=== PATIENT | female | born 1985 | race Caucasian/White ===

== ENCOUNTER → 2022-07-26 13:02 | Outpatient (CLI) | payer OTHER, SELFPAY | PROVIDERS: Referring Provider Internal Medicine; Visit Provider Internal Medicine | DX: Z23 Encounter for immunization (principal) | CPT/HCPCS: 90471; 90686 ==

== ENCOUNTER → 2023-07-14 10:48 | Outpatient (CLI) | payer OTHER, SELFPAY | PROVIDERS: Referring Provider Family Medicine; Visit Provider Family Medicine | DX: Z23 Encounter for immunization (principal) | CPT/HCPCS: 90471; 90686 ==

== ENCOUNTER 2025-08-01 06:31 | Day surgery (SDC) | payer OTHER, SELFPAY ==
[2025-07-13 12:48] VITALS: BMI 33.2
[2025-08-01] VITALS (13 sets, daily range): BP systolic 87–135; BP diastolic 52–78; PULSE 60–77; RESP 8–23; TEMP 36.4–37; O2SAT 95–100
--- NOTE | 2025-08-01 | PATH_ITS ---
[facility] Accession Number: [id number] No. of containers..02 Tissue . 01 Material submitted: . PART A: body - RIGHT TUBAL FIMBRIA PART B: uterus - UTERUS AND CERVIX . 01 Diagnosis: PART A: RIGHT TUBAL FIMBRIA Tubal fimbria with scattered benign [place] rest cysts; negative for significant atypia. . PART B: UTERUS AND CERVIX, LAPAROSCOPIC TOTAL HYSTERECTOMY ROBOT ASSISTED (WEIGHT 96 GRAMS): Cervix with no significant atypia. Endocervix with no significant atypia. Poorly preserved endometrium, favor proliferative; negative for endometrioid intraepithelial neoplasia or malignancy. Myometrium with no significant histopathologic abnormality. Uterine serosa with no significant histopathologic abnormality. [facility] 08/11/2025 1521 Local . 01 Electronically signed: . Temi Bal MD, Pathologist NPI- [id number] . 01 Gross description: . A. Received in formalin with two patient identifiers and 1. Right tubal fimbriae, is a 1.2 x 1.0 x 0.5 cm portion of purple-brown, congested fimbriae. The specimen is bisected and entirely submitted in cassette A1. B. Received in formalin with two patient identifiers and 2. Uterus and cervix, is a uterus with attached cervix, 96 grams, 8.5 cm cervix to fundus, 5.2 cm cornu to cornu, 4.5 cm anterior to posterior. The serosa is calzada-brown and predominantly smooth. The cervix is 2.5 cm long by 2.8 cm in diameter with calzada, smooth ectocervical mucosa and a patent os. The endometrium is red-calzada, hemorrhagic and 0.3 cm thick. The myometrium is pink-calzada, mildly trabeculated, and up to 2 cm thick. No discrete masses or lesions are grossly identified. Adnexa are not present. [employer] sections are submitted as follows: B1: Anterior and posterior cervix. B2: Full thickness anterior endomyometrium. B3: Full thickness posterior endomyometrium. ([id number]) /ADOLFO 08/03/20259 Local . 01 Pathologist provided ICD-10: N92.0 . 01 CPT . 735124, [id number] Specimen Comment: A courtesy copy of this report has been sent to [facility] Performed at: [address] [address], [place], [place] [id number] MD Chong Metz MD Phone: [phone]
[2025-08-01] MEDS: LACTATED RINGERS 1,000 ML 21 ML IV ×3 (06:58→11:26)
[2025-08-01] MEDS: FAMOTIDINE 20 MG/2 ML VIAL IV (07:25)
[2025-08-01] MEDS: APREPITANT 40 MG CAPSULE PO (07:25)
[2025-08-01] MEDS: ACETAMINOPHEN IV 1,000 MG/100 ML VIAL 400 MG IV (07:25)
--- NOTE | 2025-08-01 07:36 | PM.GYNHP.1 ---
History of Present Illness History of Present Illness Narrative: Elaine Medrano is a 40 year old female presenting today for planned robotic hysterectomy. She has no changes to her symptoms or medical history, and desires to proceed as planned. Prior HPI: 40-year-old female presenting today for consultation regarding heavy menstrual periods and anemia. She states that over the last few years, she has been noted to be anemic on routine blood work with her primary care provider, and on further questioning, realized that her menstrual periods have become progressively heavier. She has monthly cycles, which typically last 7 days, with 3 days of heavy flow where she has changing a diva cup every 1-2 hours. She also has significant cramping during her menstrual period. She took TXA last month, which worked well to decrease the flow. She would like to discuss more definitive options for treatment however. [facility] Medical History Anemia Surgical History (Updated 08/01/25 @ 07:38 by Myriam Harrell DO) H/O bilateral salpingectomy History of section Social History Smoking Status: Never smoker Meds Home Medications and Allergies Home Medications ?Medication ?Instructions ?Recorded ?Confirmed ?Type tranexamic acid 650 mg tablet 1,300 mg (2 x 650 mg) PO TID 5 05/05/25 08/01/25 Rx days #30 tabs methylphenidate HCl 27 mg 27 mg PO QAM 06/20/25 08/01/25 History tablet,extended release 24 hr Allergies Allergy/AdvReac Type Severity Reaction Status Date / Time No Known Drug Allergies Allergy Verified 08/01/25 06:46 Review of Systems Review of Systems ROS: Yes All systems reviewed with the patient and are negative except as otherwise documented Exam Vital Signs (past 8 hours): - 08/01/25 06:47 Temperature 98.6 F Pulse Rate 77 Respiratory Rate 16 Blood Pressure 135/70 Pulse Oximetry 98 Oxygen Delivery Method Room Air Oxygen Delivery Method Room Air Const General: healthy appearing, comfortable and No acute distress Resp Effort & Inspection: normal respiratory effort and able to speak in complete sentences Skin General: no rashes or lesions noted Neuro Cognition: normal cognition Speech: speech normal Extrem General: normal to inspection Psych Mood: congruent mood Affect: normal affect Objective Imaging US - abdomen: Radiologist's impression: FINDINGS: Uterus: Uterus is anteverted and normal in size at 8.6 x 4.3 x 5.7 cm. The myometrium is homogeneous. The endometrium measures 9.7 mm combined thickness. Mildly increased vascularity within the endometrium. Ovaries: The right ovary measures 2.2 x 3.0 x 1.8 cm, with a calculated ovarian volume of 6.1 cc. The left ovary measures 3.4 x 2.3 x 3.5 cm, with a calculated ovarian volume of 13.8 cc. The ovaries have a normal sonographic appearance. Greater than 12 follicles can be seen in each ovary. No adnexal masses are seen. Other: No pathologic free abdominal or pelvic fluid. IMPRESSION: Greater than 12 follicles are seen within the bilateral ovaries, a finding which can be seen with polycystic ovarian syndrome, recommend clinical correlation. Endometrium is normal in thickness for premenopausal female. We strive to produce accurate, complete, and clear reports of imaging services. To assist us in improving patient care, this report was composed using standard report templates and voice recognition software. Therefore, it may contain abnormal punctuation, insertions and/or omissions. Occasional wrong-word or sound-alike substitutions may occur. Though we review the report and make efforts to correct it, we do recommend that the report be read carefully in proper context to recognize any text inaccuracies. Approved by: Connor Loja M.D. on 05/10/2025 at 8:33 Assessment & Plan Assessment and plan (1) Heavy menstrual bleeding: Qualifiers: Menorrhagia type: with regular cycle Qualified Code(s): N92.0 - Excessive and frequent menstruation with regular cycle Status: Acute (2) Anemia: Qualifiers: Anemia type: iron deficiency Iron deficiency anemia type: chronic blood loss Qualified Code(s): D50.0 - Iron deficiency anemia secondary to blood loss (chronic) Status: Acute Assessment & Plan narrative: 40yo F with AUB/HMB admitted today for planned RA-TLH/possible BS/possible cysto. Surgical consent reviewed and signed today. -plan for same day surgery -ibuprofen/tylenol for post-op pain; pt declines oxycodone rx -reviewed postop expectations and restrictions -all her questions were answered to her satisfaction, and she desires to proceed with surgical plan Surgery consent We discussed the risks/benefits/alternatives to the proposed procedure, to include but not limited to: -risk of bleeding, requiring medications, blood products, or other procedures as indicated -risk of infection, requiring prolonged hospital stay or other procedures -risk of injury to other structures, including bowel, bladder, blood vessels, nerves, etc. which may also require additional procedures -risk of adverse reaction to anesthesia or medications -risk of venous thromboembolism and associated sequelae -risk of rare complications such as cardiac arrest, or extremely rarely, Patient is aware of the risks, and desires to proceed with planned surgical procedure. Time-Based Coding :: [TOTAL MINUTES] spent with patient and on the chart (including review of chart, obtaining history, exam, reviewing outside data, placing orders, documenting exam and treatment plan, and counseling patient) on [DATE].
--- NOTE | 2025-08-01 08:07 | SUR.OPER ---
Lithotomy on padded OR bed. [place] Pad positioner under torso. Head on pillow, arms padded and tucked at sides, purple strap in place across chest. Prone pillow to protect face per anesthesia. IV site and ports padded and protected. Legs secured in padded yellow fins stirrups. Surgeon approved final position prior to start of procedure.
--- NOTE | 2025-08-01 09:42 | P.OP_ITS ---
Operative Date/Time/Diagnoses Date of procedure: 08/01/25 Time of procedure: 08:00 Pre-op diagnosis: Abnormal uterine bleeding Heavy menstrual bleeding Post-op diagnosis: same Procedure & Clinicians Procedure: Robotic-assisted total laparoscopic hysterectomy Right tubal fimbriectomy Lysis of adhesions Same procedure(s) as scheduled: Yes Indications: 40-year-old female with abnormal uterine bleeding and heavy menstrual bleeding, desiring definitive management, thus she was counseled and consented for the above procedures. Surgeon: Myriam Harrell Assisted?: No Anesthesia Type: General Operative Notes Findings: Globular uterus noted, with normal-appearing right tubal fimbria, otherwise the fallopian tubes were surgically absent. Normal-appearing bilateral ovaries. Normal-appearing anterior and posterior cul-de-sac. Normal-appearing pelvic peritoneum. Specimen(s): other (Uterus, cervix, right tubal fimbria) Applied: catheter (Removed at the end of the case) Estimated Blood Loss (mL): 50 Blood products transfused: none Procedure in detail: The risks, benefits, indications and alternatives of the procedure were reviewed with the patient and informed consent was obtained. The patient was taken to the operating room where general anesthesia was obtained without difficulty. She was then placed in the low lithotomy position using Giovany Stirrups and arms were tucked with padding. She was then prepped and draped in the sterile fashion. A mathew catheter was then placed. A sterile speculum was placed in the patient's vagina and the cervix was visualized. A Derma[employer]-care uterine manipulator was placed for uterine manipulation. Attention was then turned to the patient?s abdomen where an 8mm skin incision was made in the superior aspect of the umbilicus. An 8mm trocar and sleeve were then carefully introduced into the peritoneal cavity under direct visualization at a 90-degree angle while tenting up the abdominal wall. Intra-peritoneal placement was confirmed under direct visualization with the laparoscope with entry pressure <5 mm Hg. A pneumoperitoneum was obtained with several liters of CO2 gas, maximum pressure of 15 mmHg. Upon entry into the peritoneal cavity, structures immediately below the incision were inspected and found to be free of injury. Survey of abdomen and pelvis notable for above findings. Four additional ports were placed under visualization at the following sites: two 8mm DaVinci ports in the left mid-quadrant and two 8mm DaVinci ports in the right mid-quadrant. The DaVinci robot was then docked, with the vessel sealer and monopolar hero available as energy source. Omental adhesions were noted to the anterior abdominal wall, and these were taken down with the vessel sealer. Stabilizing the uterus, the vessel sealer was then used to clamp, cut, and ligate the left round ligament. The left utero-ovarian ligament was then clamped, cauterized, and ligated. The anterior broad ligament was then incised to create a bladder flap. Attention was then turned to the right side of the uterus. The right tubal fimbria was transected using the vessel sealer, and removed via the assist port. In a similar manner to the left side, the right round ligament and right utero- ovarian ligament were clamped, cauterized, then ligated. The anterior broad ligament was incised along the bladder reflection, connected with the prior incision created from the left side. This was bluntly and sharply dissected off the lower uterine segment and cervix until endopelvic fascia was visualized. The uterine vessels bilaterally were then identified, skeletonized, cauterized, and then ligated. The colpotomy was then made circumferentially using the monopolar scissors. The entire cervix and uterus were then successfully amputated from the vagina. The uterus, cervix, and bilateral fallopian tubes were then removed through the vagina. The vagina was occluded with a glove to maintain pneumoperitoneum. The vaginal cuff was then closed with an 0-stratafix barbed suture in a running fashion. The pelvis was irrigated and found to to be hemostatic. The pneumoperitoneum was then released and the remaining ports were removed. The skin incisions were then re-approximated using 4-0 monocryl suture in a s ubcuticular fashion and covered with Dermabond. At the completion of the case all instruments were removed from the vagina and the sponge and needle counts were correct x 2. The mathew catheter was also removed. The patient was taken to the PACU in stable condition. Complications: none Post-operative Condition: stable Disposition: PACU Plan for aftercare: Plan for discharge to home with follow up in the clinic as scheduled.
[2025-08-01] MEDS: KETOROLAC 30 MG/ML VIAL IV (09:55)
== END 2025-08-01 13:53 | disposition home or self-care (01) ==
PROVIDERS: PCP Physician Assistant; Referring Provider Physician Assistant; Visit Provider Student in an Organized Health Care Education/Training Program
PROC: 0UT94ZZ Resection of Uterus, Percutaneous Endoscopic Approach (ICD-10-PCS; CPT 58570; principal; 2025-08-01 07:45)
DX: N93.9 Abnormal uterine and vaginal bleeding, unspecified (principal); N92.0 Excessive and frequent menstruation with regular cycle; D50.0 Iron deficiency anemia secondary to blood loss (chronic); N83.8 Other noninflammatory disorders of ovary, fallopian tube and broad ligament; E66.9 Obesity, unspecified; Z68.33 Body mass index [BMI] 33.0-33.9, adult
CPT/HCPCS: 58570; S2900; J0131; J0689; J1100; J1171; J1885; J2250; J2405; J2704; J3010; J3490; J7120; J8501